=== PATIENT | male | born 1955 ===

== ENCOUNTER 2020-06-30 09:08 | Outpatient (CLI) | payer MEDICAID ==
[2020-06-30] MEDS ORDERED: ASPIRIN EC81 MG ORAL (15:07)
[2020-06-30] MEDS ORDERED: PLAVIX75 MG ORAL (15:07)
[2020-06-30] MEDS ORDERED: METFORMIN HCL500 M1 ORAL (15:07)
[2020-06-30] MEDS ORDERED: CARDIZEM60 MG ORAL (15:07)
[2020-06-30] MEDS ORDERED: METOPROLOL TART25 MG ORAL (15:07)
--- NOTE | 2020-06-30 17:30 | Consultation ---
DATE OF CONSULTATION: 06/30/2020 GASTROENTEROLOGY CONSULTATION CONSULTING PHYSICIAN: Johnny Magana MD REFERRING PHYSICIAN: Johnny Jones MD CHIEF COMPLAINT: Referral for rectal bleeding. PAST MEDICAL HISTORY: 1. Hypertension. 2. Hypercholesterolemia. 3. Diabetes. PAST SURGICAL HISTORY: Cardiac stent placement 5 years ago. MEDICATIONS: Please see medication reconciliation list. FAMILY HISTORY: No family history of GI malignancies. SOCIAL HISTORY: The patient denies any tobacco, alcohol, or IV drug abuse. ALLERGIES: No known drug allergies. REVIEW OF SYSTEMS: A 10-point review of systems was performed, except for blood in the stool, it was negative. PHYSICAL EXAMINATION: VITAL SIGNS: Temperature 97.6. Vitals are stable. HEENT: Normocephalic and atraumatic. Sclerae are anicteric. NECK: Supple. No evidence of obvious lymphadenopathy. CARDIOVASCULAR: Regular rate and rhythm. Plus S1, S2 LUNGS: Clear to auscultation bilaterally. ABDOMEN: Positive bowel sounds. Soft and nontender. No rebound. No guarding. No peritoneal sign. EXTREMITIES: No cyanosis. No clubbing. No edema. ASSESSMENT: This is a 64-year-old male on aspirin and Plavix with blood in stool, need for endoscopy and colonoscopy for evaluation of GI bleeding. PLAN: The patient was given the instruction for endoscopy and colonoscopy. Risks and benefits of the procedure were explained to him. He will be scheduled when authorization will be obtained. He was told to stop the Plavix three days before the procedure. I want to thank Dr. Johnny Jones for this kind referral. Johnny Magana M.D. DR: QUIQUE JOB#: [id number] CC: Johnny Jones MD; Fax#: [phone]
== END 2020-06-30 11:08 | disposition home or self-care (01) ==
LOC: PAN 09:08
DX: K62.5 Hemorrhage of anus and rectum (principal); I10 Essential (primary) hypertension; E78.00 Pure hypercholesterolemia, unspecified; E11.9 Type 2 diabetes mellitus without complications; Z95.5 Presence of coronary angioplasty implant and graft; Z79.82 Long term (current) use of aspirin; Z79.02 Long term (current) use of antithrombotics/antiplatelets
CPT/HCPCS: G0463